=== PATIENT | male | born 1960 | race Caucasian/White ===

== ENCOUNTER → 2017-07-13 | Outpatient (CLI) | payer OTHER ==
--- NOTE | 2017-07-13 14:15 | DIAGNOSTIC IMAGING REPORT ---
(TESTICULAR) SCROTUM-CONT CLINICAL HISTORY: 56 years-old Male presenting with LT SCROTAL CYST. TECHNIQUE: Real-time grayscale and color and spectral Doppler ultrasound imaging of the scrotum was performed. COMPARISON: 11/24/2013. FINDINGS: Right testis: Normal echogenicity and echotexture. Testis measures 4.9 x 3.2 x 2.5 cm. Normal color Doppler flow and arterial and venous waveforms in the testicular parenchyma. Epididymal head normal. Small hydrocele. Varicocele present. Left testis: Normal echogenicity and echotexture. Testis measures 5.0 x 3.5 x 2.4 cm. Normal color Doppler flow and arterial and venous waveforms in the testicular parenchyma. Simple appearing anechoic 2.8 x 1.6 x 3.0 cm cyst in the region of the epididymal head, either epididymal head cyst or spermatocele. Small hydrocele. Varicocele present. Symmetric perfusion of the testes. IMPRESSION: 1. No evidence of testicular torsion. 2. Bilateral small hydroceles. 3. Bilateral varicoceles. 4. 3 cm left epididymal head cyst or spermatocele. Electronically signed by: Charile Leigh M.D. 07/13/2017 2:13 PM Dictated Date/Time: 07/13/2017 2:10 PM
== END | disposition home or self-care (01) ==
LOC: C.ULTR 13:21
PROVIDERS: ATTEND Family Medicine
DX: N43.3 Hydrocele, unspecified (principal); I86.1 Scrotal varices